=== PATIENT | male | born 1960 | race Caucasian/White ===

== ENCOUNTER 2019-07-06 16:22 | Emergency (ER) | payer OTHER ==
[~2019-07-06] VITALS: Ht 188 cm; Wt 97.5 kg
[2019-07-06] MEDS ORDERED: CYCLOBENZAPRINE5 MG PO (18:54)
[2019-07-06] MEDS ORDERED: MOBIC15 MG PO (18:54)
[2019-07-06] MEDS ORDERED: NORCO 5-325 TA1 EAC1 PO (18:54)
[2019-07-06 19:18] VITALS: BP 125/63
== END 2019-07-06 19:22 | disposition home or self-care (01) ==
LOC: ER 16:22
DX: S39.012A Strain of muscle, fascia and tendon of lower back, initial encounter (principal); M54.6 Pain in thoracic spine; F17.210 Nicotine dependence, cigarettes, uncomplicated; Z98.890 Other specified postprocedural states; Z90.89 Acquired absence of other organs; X50.0XXA Overexertion from strenuous movement or load, initial encounter; Y93.89 Activity, other specified; Y92.89 Other specified places as the place of occurrence of the external cause; Y99.0 Civilian activity done for income or pay